=== PATIENT | female | born 1955 | race Two or more races ===

== ENCOUNTER 2017-02-11 08:52 | Emergency (ER) | payer SELFPAY ==
[~2017-02-11] VITALS: Ht 160 cm; Wt 63.5 kg
--- NOTE | 2017-02-11 09:02 | NUR ---
PT OT ED ROOM 02. "THERE IS A BALL COMING FROM MY VAGINA" X 3 WEEKS. A/A/O. NAD. VS WNL.AMBULATORY WITH STEADY GAIT. CHANGED TO GOWN. SIDE RAILS UP. HOB ELEVATED. AWAITING EVALUATION BY ER PROVIDER.
[2017-02-11 09:03] VITALS: BP 165/74
--- NOTE | 2017-02-11 09:03 | NUR ---
DR SAGASTUME AT BEDSIDE FOR EVAL
== END 2017-02-11 09:26 | disposition home or self-care (01) ==
LOC: ER 08:55
DX: N81.4 Uterovaginal prolapse, unspecified (principal); E11.9 Type 2 diabetes mellitus without complications; I10 Essential (primary) hypertension
CPT/HCPCS: 99283; A4606; Z7610

== ENCOUNTER 2017-08-26 17:54 | Emergency (ER) | payer MEDICAID, OTHER ==
[~2017-08-26] VITALS: Ht 162.6 cm; Wt 63.5 kg
[2017-08-26 19:23] VITALS: BP 160/78
== END 2017-08-26 19:54 | disposition home or self-care (01) ==
LOC: ER 17:56
DX: H61.22 Impacted cerumen, left ear (principal); I10 Essential (primary) hypertension; E11.9 Type 2 diabetes mellitus without complications
CPT/HCPCS: A4606; Z7610

== ENCOUNTER 2017-09-07 15:28 | Emergency (ER) | payer OTHER ==
[~2017-09-07] VITALS: Ht 162.6 cm; Wt 65.8 kg
--- NOTE | 2017-09-07 15:31 | NUR ---
PT WAS BB FAMILY, ASSISTED VIA WHEELCHAIR TO ED BED 16, PT IS C/O WORSENING HEADACHE, WORST TODAY. DIZZINESS WHILE AT WORK 1 HR AGO. PT ASSISTED TO ED BED. PLACED ON CONT CARDIAC AND POX MONITORING. ALL NEEDS ARE ATTENDED, KEPT WARM AND COMFORTABLE. PENDING ER MD EVALUATION
[2017-09-07] MEDS ORDERED: MECLIZINE HCL 12.5 MG TABLET PO ONE (16:00)
[2017-09-07] MEDS ORDERED: MECLIZINE HCL 25 MG TABLET ONE (16:08)
[2017-09-07 16:17] LABS: BASOPHILS # (AUTO) 0.1 /CMM (0.0-0.2); BASOPHILS % (AUTO) 0.6 % (0.0-2.0); EOSINOPHILS % (AUTO) 1.9 % (0.0-6.0); HEMATOCRIT 38 % (33-45); HEMOGLOBIN 13.3 g/dL (11.5-14.8); LYMPHOCYTES # (AUTO) 2.2 /CMM (0.8-4.8); LYMPHOCYTES % (AUTO) 25.5 % (20.0-44.0); MEAN CORPUSCULAR HGB CONC 35 g/dl (31.0-36.0); MEAN CORPUSCULAR VOLUME 87 fL (82-100); MONOCYTES # (AUTO) 0.4 /CMM (0.1-1.30); MONOCYTES % (AUTO) 4.2 % (2.0-12.0); NEUTROPHILS # (AUTO) 5.9 /CMM (1.8-8.9); NEUTROPHILS % (AUTO) 67.8 % (43.0-81.0); PLATELET COUNT (AUTO) 208 /CMM (150-450); RDW COEFFICIENT OF VARIATION 11.7 (11.5-15.0); RED BLOOD CELL COUNT(AUTO) 4.39 MIL/uL (4.0-5.2); WHITE BLOOD COUNT (AUTO) 8.8 K/uL (4.3-11.0)
[2017-09-07 16:26] LABS: CREATININE 0.6 mg/dL (0.6-1.3); POTASSIUM 4.7 mmol/L (3.5-5.1)
[2017-09-07 16:31] LABS: INR 0.95 (0.85-1.15)
--- NOTE | 2017-09-07 19:00 | NUR ---
IV removed. Catheter intact and site benign. Pressure and 4x4 applied to site. No bleeding noted.
--- NOTE | 2017-09-07 19:07 | NUR ---
Patient discharged to home in stable condition. Written and verbal after care instructions given. Patient verbalizes understanding of instruction.
[2017-09-07 19:14] VITALS: BP 136/77
== END 2017-09-07 19:14 | disposition home or self-care (01) ==
LOC: ER 15:30
DX: R42 Dizziness and giddiness (principal); E11.9 Type 2 diabetes mellitus without complications; I10 Essential (primary) hypertension
CPT/HCPCS: 36415; 70450; 80048; 85025; 85730; 93005; 99285; A4606; J8597; Z7610

== ENCOUNTER 2018-09-09 11:41 | Emergency (ER) | payer OTHER ==
[~2018-09-09] VITALS: Ht 160 cm; Wt 63.5 kg
[2018-09-09 11:47] VITALS: BP 147/84
== END 2018-09-09 12:08 | disposition home or self-care (01) ==
LOC: ER 11:41
DX: M54.12 Radiculopathy, cervical region (principal); I10 Essential (primary) hypertension; E11.9 Type 2 diabetes mellitus without complications

== ENCOUNTER 2018-09-22 16:27 | Emergency (ER) | payer OTHER ==
[~2018-09-22] VITALS: Ht 165.1 cm; Wt 68.0 kg
[2018-09-22 17:36] VITALS: BP 148/71
== END 2018-09-22 18:04 | disposition home or self-care (01) ==
LOC: ER 16:27
DX: L03.114 Cellulitis of left upper limb (principal); L03.032 Cellulitis of left toe; B35.1 Tinea unguium; E11.9 Type 2 diabetes mellitus without complications; I10 Essential (primary) hypertension
CPT/HCPCS: 82962-TC

== ENCOUNTER 2018-12-25 09:12 | Emergency (ER) | payer OTHER ==
[~2018-12-25] VITALS: Ht 157.5 cm; Wt 57.6 kg
[2018-12-25] MEDS ORDERED: IV NS 0.9% 500 ML BAG IV ONE (09:30)
[2018-12-25] MEDS ORDERED: ONDANSETRON HCL/PF 4 MG/2 ML VIAL IVP ONE (09:30)
[2018-12-25 09:35] LABS: BASOPHILS # (AUTO) 0.1 /CMM (0.0-0.2); BASOPHILS % (AUTO) 0.8 % (0.0-2.0); EOSINOPHILS % (AUTO) 0.2 % (0.0-6.0); HEMATOCRIT 44 % (33-45); HEMOGLOBIN 14.8 g/dL (11.5-14.8); LYMPHOCYTES # (AUTO) 2.2 /CMM (0.8-4.8); LYMPHOCYTES % (AUTO) 17.1 % (20.0-44.0); MEAN CORPUSCULAR HGB CONC 34 g/dl (31.0-36.0); MEAN CORPUSCULAR VOLUME 91 fL (82-100); MONOCYTES # (AUTO) 0.8 /CMM (0.1-1.30); MONOCYTES % (AUTO) 5.8 % (2.0-12.0); NEUTROPHILS # (AUTO) 9.9 /CMM (1.8-8.9); NEUTROPHILS % (AUTO) 76.1 % (43.0-81.0); PLATELET COUNT (AUTO) 205 /CMM (150-450); RED BLOOD CELL COUNT(AUTO) 4.81 MIL/uL (4.0-5.2)
[2018-12-25] MEDS ORDERED: ONDANSETRON HCL/PF 4 MG/2 ML VIAL ONE (09:38)
[2018-12-25 10:02] LABS: CALCIUM, SERUM 9.6 mg/dL (8.5-10.1); CARBON DIOXIDE 29 mmol/L (21-32); CHLORIDE 104 mmol/L (98-107); CREATININE 1.2 mg/dL (0.6-1.3); GLUCOSE 139 mg/dL (74-106); SODIUM SERUM 140 mmol/L (136-145); UREA NITROGEN, BLOOD 16 mg/dL (7-18)
[2018-12-25 10:08] LABS: ALANINE AMINOTRANSFERASE 16 U/L (12-78); ALKALINE PHOSPHATASE 63 U/L (46-116); ASPARTATE AMINOTRANSFERASE 10 U/L (15-37); BILIRUBIN,DIRECT 0.1 mg/dL (0.0-0.2); BILIRUBIN,TOTAL 0.5 mg/dL (0.2-1.0); TOTAL PROTEIN, SERUM 7.5 g/dL (6.4-8.2)
[2018-12-25] MEDS ORDERED: KETOROLAC TROMETHAMINE 15 MG/ML VIAL ONE (10:59)
[2018-12-25] MEDS ORDERED: ONDANSETRON HCL/PF - ER 4 MG/2 ML VIAL IV ONE (11:00)
[2018-12-25] MEDS ORDERED: KETOROLAC TROMETHAMINE INJ 30 MG/ML VIAL IV ONE (11:00)
[2018-12-25 11:50] VITALS: BP 66/101
--- NOTE | 2018-12-25 11:54 | NUR ---
Pt states "feel better No nausea/vomiting" Patient discharged to home in stable condition. Written and verbal after care instructions given. Patient verbalizes understanding of instruction.
== END 2018-12-25 11:53 | disposition home or self-care (01) ==
LOC: ER 09:14
DX: K52.9 Noninfective gastroenteritis and colitis, unspecified (principal); I10 Essential (primary) hypertension; E11.9 Type 2 diabetes mellitus without complications; R55 Syncope and collapse
CPT/HCPCS: 36415; 70450; 71045; 80048; 80076; 84484; 85025; 93005; 96374; 96375; 99284; J1885; J2405; J7040